=== PATIENT | female | born 1950 | race Caucasian/White ===

== ENCOUNTER 2023-02-19 10:24 | Outpatient (REF) | payer MEDICARE, BC, SELFPAY ==
[2023-02-19 15:59] LABS: Abs Immature Grans 0.01 10^3/uL (0.0-0.06); Absolute Basophil Count 0.04 10^3/uL (0.0-0.2); Absolute Eosinophil Count 0.03 10^3/uL (0.0-0.7); Absolute Lymphocyte Count 1.47 10^3/uL (1.2-3.4); Absolute Monocyte Count 0.73 10^3/uL (0.1-0.8); Absolute Neutrophil Count 2.72 10^3/uL (1.2-6.7); Basophils % 0.8; Eosinophils % 0.6; HCT 39.4 % (36.0-46.0); HGB 13.3 g/dL (11.2-15.7); Immature Grans % 0.2; Lymphocytes % 29.4; MCH 31.2 pg (27.0-33.0); MCHC 33.8 % (32.0-36.0); MCV 93 fL (80-95); MPV 10.1 fL (8.0-11.0); Monocytes % 14.6; Neutrophils % 54.4; Platelet Count 177 10^3/uL (130-400); RBC 4.26 10^6/uL (3.93-5.22); RDW 13.2 % (11.7-14.6); RDW-SD 45.3 fL
[2023-02-19 16:30] LABS: BUN 12 mg/dL (7-18); CREATININE 0.9 mg/dL (0.55-1.02); Calcium 8.8 mg/dL (8.5-10.1); Chloride 100 mmol/L (98-107); Estimated GFR 68.77 (mL/min/1.73m2); Glucose 116 mg/dL (74-106); Potassium 4.2 mmol/L (3.5-5.1); Sodium 134 mmol/L (136-145)
== END 2023-02-19 10:25 | disposition home or self-care (01) ==
LOC: LBN 10:24
PROVIDERS: Visit Provider Nurse Practitioner Family
DX: U07.1 COVID-19 (principal); M79.18 Myalgia, other site; R50.9 Fever, unspecified
CPT/HCPCS: 80048; 85025

== ENCOUNTER 2023-12-25 09:30 | Emergency (ER) | payer MEDICARE, BC, SELFPAY ==
[2023-12-25] VITALS (14 sets, daily range): BP systolic 115–172; BP diastolic 78–95; PULSE 56–66; RESP 17; TEMP 36.3; O2SAT 95–97
--- NOTE | 2023-12-25 09:59 | ED.GENADUL_ITS ---
Discharge Plan Disposition Patient Disposition: Home Condition: Stable Discharge Details Clinical Impression: Epiploic appendagitis Primary Care Provider: Unknown,Unknown ED Provider: Zackery Peña Home Meds and New Rx's Prescriptions: Continued pravastatin 20 mg tablet 20 mg PO DAILY multivitamin [Daily Multi-Vitamin] 1 EACH tablet 1 tab PO DAILY cholecalciferol (vitamin D3) 1,000 UNITS tablet 2,000 unit PO DAILY latanoprost 0.005 % drops 1 drp ophthalmic (eye) QPM Patient Comments: INSTILL 1 DROP INTO EACH EYE ONCE DAILY AT NIGHT AT BEDTIME coenzyme Q10 [CoQ-10] 100 mg capsule 200 mg PO DAILY psyllium husk [Daily Fiber] 0.52 gram capsule 0.52 g PO DAILY Xagc-Wiqe-Hzuwly Oil [phone] mg capsule 1 cap PO QHS afpsyip-whwluiigr-erquaf-zinc Tablet 1 tab PO DAILY C Complex 1,000 mg tablet extended release 1,000 mg PO DAILY octavit 1 tab PO DAILY vitamin E 200 unit capsule 45 mg PO DAILY Discharge Instructions Additional Instructions: You were seen in the emergency department for your left lower abdominal pain, you were found to have a condition called epiploic appendagitis, this is a torsion of a small piece of normal abdominal omentum which is a drape of cushioning fat nodules that protect your colon from physical trauma, this condition is usually benign and self-limiting and resolves in 3 to 14 days. There is a small chance that this can cause abscess instead of normal resorption, it is also a very minuscule chance of causing a small bowel obstruction, please return for any severe increase in pain especially with fever, complete constipation, other emergent concerns. Pain control is the only goal of this condition and that would be through Tylenol and ibuprofen as needed. Discharge Data Discharge Date/Time-TO BE ENTERED AT DEPARTURE: 12/25/23 12:55 HPI General Date/Time Provider Initiated Documentation: 12/25/23 09:42 . HPI Narrative: 73 year-old female presents to ED today by POV/ambulating with a chief complaint of L sided abdominal pain, poor appetite since last night with onset of abdominal pain a few days ago. Quality described as generalized aching, no radiation to severe sharp pain, R sided abdominal pain, nausea/vomiting, diarrhea, constipation, endorses passing, flatus, denies fevers, denies chest pain, shortness of breath, or cough. Severity is described as moderate. Palliating factors include nothing specific attempted. Provoking factors include nothing specific. Patient not anticoagulated. Related Data Home Medications ?Medication ?Instructions ?Recorded ?Confirmed cholecalciferol (vitamin D3) 25 2,000 unit PO DAILY 05/11/14 12/25/23 mcg (1,000 unit) tablet multivitamin (Daily Multi-Vitamin 1 tab PO DAILY 05/11/14 12/25/23 tablet) pravastatin 20 mg tablet 20 mg PO DAILY 02/19/23 12/25/23 ascorbic acid (vitamin C) 1,000 mg 1,000 mg PO DAILY 12/25/23 12/25/23 tablet,extended release (C Complex) xrljspp-jfhnxehgy-cmbwur-zinc 1 tab PO DAILY 12/25/23 12/25/23 tablet coenzyme Q10 100 mg capsule 200 mg PO DAILY 12/25/23 12/25/23 (CoQ-10) fish,safflwr,flax,borag 1 cap PO QHS 12/25/23 12/25/23 oils-om3,6,9 #2 800 mg-200 mg-150 mg-50 mg cap (Qifw-Vkcn-Tqgtia Oil) latanoprost 0.005 % eye drops 1 drp ophthalmic (eye) QPM 12/25/23 12/25/23 octavit 1 tab PO DAILY 12/25/23 12/25/23 psyllium husk 0.52 gram capsule 0.52 g PO DAILY 12/25/23 12/25/23 (Daily Fiber) vitamin E 200 unit capsule 45 mg PO DAILY 12/25/23 12/25/23 Allergies Allergy/AdvReac Type Severity Reaction Status Date / Time Sulfa (Sulfonamide Allergy Intermediate Skin Rash Unverified 12/25/23 09:38 Antibiotics) General Stated Complaint: Abd Prob CAITLIN: 3 Review of Systems All systems reviewed & are unremarkable except as noted in HPI and below Exam Narrative Exam Narrative: GENERAL APPEARANCE: Well-nourished, non-toxic, awake and alert, atraumatic, no acute distress. SKIN: Warm, pink, dry, intact, without rashes/lesions/ulcerations. HEAD: Normocephalic, atraumatic, normal hair distribution for gender/age. EYES: Normal conjunctiva, no exudates on lids/lashes. ENT: Nares patent, no circumoral cyanosis, no facial swelling NECK: Supple, trachea midline, painless cervical ROM. LUNGS/CHEST: Lungs CTA bilaterally- no rhonchi/rales/wheezes diffusely, non- labored respirations, normal A/P diameter, symmetrical expansion, no chest wall deformity HEART (CV/PV): Regular rate and rhythm without murmur, no peripheral edema, no JVD. ABDOMEN: Soft, non-distended, no guarding, L sided abdominal tenderness, negative Rovsing's, no CVA tenderness to percussion bilaterally. MSK: Normal ROM, no swelling/deformity to bilateral UEs or LEs, moving all extremities without weakness, no cyanosis, spine midline without tenderness, normal curvature. NEURO: Mental Status AAOx4 - alert to person, place, time, events No facial droop, no forehead involvement. Motor: No focal weakness - strength 5/5 in bilateral UEs and LEs, proximal and distal, symmetric. Sensory: sensation intact to light touch globally. Gait normal: patient ambulated without ataxia into ED room. PSYCH: euthymic, cooperative, pleasant, appropriate speech Course Vital Signs Vital signs: Vital Signs Temperature 36.3 C L 12/25/23 09:34 Pulse 66 12/25/23 09:34 Respiratory Rate 17 12/25/23 09:34 Blood Pressure 163/79 H 12/25/23 09:34 Pulse Oximetry 96 12/25/23 09:34 Temperature 36.3 C L 12/25/23 09:38 Temperature Source Temporal Artery Scan 12/25/23 09:38 Pulse 66 12/25/23 09:38 Respiratory Rate 17 12/25/23 09:38 Blood Pressure 163/79 H 12/25/23 09:38 Blood Pressure Position Sitting 12/25/23 09:38 Pulse Oximetry 96 12/25/23 09:38 Oxygen Delivery Method Room Air 12/25/23 09:38 Oxygen Flow Rate 0 12/25/23 09:38 Pain Level 7 12/25/23 09:38 Medical Decision Making This dictation utilizes okfrn-ac-igrk dictation software and may contain unedited grammatical errors. 73 year-old female presents to ED today by POV/ambulating with a chief complaint of L sided abdominal pain, poor appetite since last night with onset of abdominal pain a few days ago. Quality described as generalized aching, no radiation to severe sharp pain, R sided abdominal pain, nausea/vomiting, diarrhea, constipation, endorses passing, flatus, denies fevers, denies chest pain, shortness of breath, or cough. Severity is described as moderate. Palliating factors include nothing specific attempted. Provoking factors include nothing specific. Patients' medical history: [ ]. Family and social history: [ ]. Pertinent exam findings / vital signs include L sided abdominal pain, stable vitals, benign cardiopulmonary exam, no CVA tenderness percussion bilaterally. Differential / pathologies of concern include diverticulitis, SBO, gastroenteritis, colitis, unlikely mesenteric ischemia or sepsis. Diagnostic studies of: -CBC, CMP, CRP/ESR, lactate, lipase, procalcitonin, UA, blood cultures. -CBC is reassuring without leukocytosis or anemia -Lactate 1.2, procalcitonin negative-do not suspect sepsis or mesenteric ischemia -CRP only mildly elevated with a normal ESR do not suspect inflammatory bowel disease -CMP benign -UA has moderate leuk esterase with 10-20 WBCs will await culture -CT shows IV fluid appendagitis, discussed with surgery they provided reassurance that the patient will likely improve as this is a self-limiting condition but distress strict return criteria Interventions of: -Patient refused simple analgesics. ED Course/Assessment/Plan: 73-year-old otherwise healthy female presents with left-sided abdominal pain of a few days, poor appetite since last night, denies nausea vomiting diarrhea or fever, CT shows epiploic appendagitis and labs are reassuring for no acute infectious etiology at this time, I discussed the benign self-limiting condition and very minimal chance for progression to a possible abscess, did stressed strict return criteria for severe increase in pain especially with fever. Findings not consistent with inflammatory bowel disease, diverticulitis, perforated viscus, acute abdominal emergency. Disposition of Epiploic Appendagitis. Patient verbalized understanding of the plan and return to ED criteria and engaged in shared decision making. Medical Records Medical records reviewed: Yes I reviewed the patient's medical records. Imaging Data Radiologic Study: Attestation: I personally reviewed and interpreted this imaging study as follows: Imaging: CT Scan Radiologist's impression: Exam: CT Abdomen And Pelvis With Contrast Exam date and time: 12/25/2023 11:23 AM Age: 73 years old Clinical indication: Abdominal tenderness TECHNIQUE: Imaging protocol: Computed tomography of the abdomen and pelvis with contrast. Contrast material: OMNIPAQUE 350; Contrast volume: 100 ml; Contrast route: INTRAVENOUS (IV); COMPARISON: No relevant prior studies available. FINDINGS: Heart: There is calcification of the mitral valve annulus. Liver: Subcentimeter low attenuation area in the liver is too small for characterization. Gallbladder and biliary ducts: Multiple gallstones in the gallbladder. Pancreas: Pancreatic atrophy Spleen: Normal. No splenomegaly. Adrenal glands: Normal. No mass. Kidneys and ureters: Subcentimeter low attenuation area in the right kidney is too small for characterization. Stomach and bowel: No the bowel obstruction. No mucosal thickening Appendix: Normal appendix Intraperitoneal space: 2 cm Hyperdense ring with surrounding inflammatory changes in the anterior aspect of the left hemipelvis (series 8, image 96.). Differential includes omental infarction and epiploica appendagitis.. Vasculature: Unremarkable. No abdominal aortic aneurysm. Lymph nodes: Unremarkable. No enlarged lymph nodes. Urinary bladder: Unremarkable as visualized. Reproductive: Unremarkable as visualized. Bones/joints: No acute fracture.. Soft tissues: Unremarkable. IMPRESSION: 1. 2 cm Hyperdense ring with surrounding inflammatory changes in the anterior aspect of the left hemipelvis (series 8, image 96.). Differential includes omental infarction and epiploica appendagitis.. 2. Multiple gallstones in the gallbladder. Dictated and Authenticated by: Uriel Rolon MD. Lab Data Lab results reviewed: Yes I reviewed the patient's lab results. Labs: 12/25/23 10:34 Urine - Reflex from Ua Urine Culture - Pending 12/25/23 10:00 Blood Blood Culture - Pending 12/25/23 10:00 Blood Blood Culture - Pending Laboratory Tests Range/Units 12/25/23 12/25/23 10:20 10:34 WBC (4.4-10.8) 10^3/uL 7.52 RBC (3.93-5.22) 10^6/uL 4.61 Hgb (11.2-15.7) g/dL 14.1 Hct (36.0-46.0) % 42.5 MCV (80-95) fL 92 MCH (27.0-33.0) pg 30.6 MCHC (32.0-36.0) % 33.2 RDW (11.7-14.6) % 13.2 Plt Count (130-400) 10^3/uL 238 MPV (8.0-11.0) fL 9.5 Immature Gran % % 0.3 Neutrophils % % 47.0 Lymphocytes % % 41.0 Monocytes % % 8.1 Eosinophils % % 2.9 Basophils % % 0.7 Nucleated RBC % (0.0-0.3) % 0.0 Absolute Neutrophils (1.2-6.7) 10^3/uL 3.54 Absolute Lymphocytes (1.2-3.4) 10^3/uL 3.08 Absolute Monocytes (0.1-0.8) 10^3/uL 0.61 Absolute Eosinophils (0.0-0.7) 10^3/uL 0.22 Absolute Basophils (0.0-0.2) 10^3/uL 0.05 ESR (0-30) mm/hr 21 VBG Lactate (0.6-1.4) mmol/L 1.2 Sodium (136-145) mmol/L 138 Potassium (3.5-5.1) mmol/L 4.1 Chloride (98-107) mmol/L 103 Carbon Dioxide (21.0-32.0) mmol/L 26.1 Anion Gap (3-11) mmol/L 8.9 BUN (7-18) mg/dL 12 Creatinine (0.55-1.02) mg/dL 0.8 Est GFR (CKD-EPI 2020) (mL/min/1.73m2) 78.72 Glucose (74-106) mg/dL 107 H Calcium (8.5-10.1) mg/dL 9.3 Total Bilirubin (0.2-1.0) mg/dL 0.93 AST (15-37) U/L 22 ALT (14-59) U/L 35 Alkaline Phosphatase (46-116) U/L 67 C-Reactive Protein (<or=0.5) mg/dL 0.69 H Total Protein (6.4-8.2) g/dL 7.4 Albumin (3.4-5.0) g/dL 4.0 Lipase (16-77) U/L 33 Procalcitonin ng/mL < 0.1 Urine Color (Yellow) Yellow Urine Clarity (Clear) Sl Cloudy Urine pH (5-8) 7.0 Ur Specific [place] (1.005-1.025) 1.015 Urine Protein (Neg-Trace) mg/dL Negative Urine Ketones (Negative) mg/dL Negative Urine Blood (Negative) Negative Urine Nitrite (Negative) Negative Urine Bilirubin (Negative) Negative Urine Urobilinogen (Up to 0.2) mg/dL 0.2 Ur Leukocyte Esterase (Negative) Moderate H Urine RBC (0-2) HPF 0-2 Urine WBC (0-5) HPF 10-20 H Ur Epithelial Cells (Negative) HPF Rare Urine Crystals (Negative) HPF Negative Urine Bacteria (Negative) HPF Many Urine Casts (Negative) LPF Negative Urine Mucus (Negative) Trace Ur Culture Indicated? Yes Urine Glucose (Negative) mg/dL Negative Quality:SDOH Health Related Social Needs: No Data to Display PFSH All Active Problems (Updated 12/25/23 @ 12:24 by BRODY Bocanegra) Epiploic appendagitis (Acute) Social History Smoking/Tobacco Use Status: Never Smoking risk assessment performed?: Yes Drug use: Never
--- NOTE | 2023-12-25 10:00 | DI.CT_ITS ---
Exam(s) CT ABDOMEN PELVIS W EXAM: CT ABDOMEN PELVIS W CLINICAL HISTORY: LLQ tenderness. TECHNIQUE: Imaging Protocol: Axial computed tomography images with coronal and sagittal reformatted images were created and reviewed CONTRAST MATERIAL: Intravenous: Omnipaque 350 Contrast volume:100 ml Oral: no COMPARISON: No exams were available for comparison FINDINGS: ABDOMEN and PELVIS: Lung Bases: No acute findings. Liver: Normal density. No suspicious mass. Gallbladder and biliary tract: A few small stones are present. No wall thickening. No biliary dilat ion. Pancreas: Normal density. No abnormal calcifications or inflammatory process. No evidence of mass. Spleen: Normal. Kidneys: Normal size, contour and axis. No radiodense stones. No obstructive uropathy. No suspicious masses seen. Adrenal glands: No masses seen. Vasculature: Abdominal aorta non-dilated. Soft tissues: Unremarkable. Bladder: No gross wall thickening. No calculi.No focal mass. Bowel: No obstruction. No bowel wall thickening. Appendix normal. Peritoneal cavity: No ascites. No focal collection. Small area of inflammation seen in the fat anter ior to the mid descending colon, consistent with epiploic appendagitis. No evidence of diverticula. Appendix normal. Bones: Degenerative disc changes at L4-5. Reproductive organs: Unremarkable. Lymph nodes: No pathologically enlarged lymph nodes. But IMPRESSION:: Findings consistent with epiploic appendagitis in the left anterior left lower quadran t mesentery RADIATION DOSE DELIVERED: Total DLP DATA REPOSITORY: All CT scans at this facility are submitted to the National Radiology Data Registry (NRDR) Dose Index Registry (DIR) with the [employer] ([employer]). RADIATION OPTIMIZATION: All CT scans at this facility use at least one of these dose optimization te chniques: automated exposure control; mA and/or kV adjustment per patient size (includes targeted exa ms where dose is matched to clinical indication); or iterative reconstruction.
[2023-12-25 10:24] LABS: Lactate 1.2 mmol/L (0.6-1.4)
[2023-12-25 10:32] LABS: Abs Immature Grans 0.02 10^3/uL (0.0-0.06); Absolute Basophil Count 0.05 10^3/uL (0.0-0.2); Absolute Eosinophil Count 0.22 10^3/uL (0.0-0.7); Absolute Lymphocyte Count 3.08 10^3/uL (1.2-3.4); Absolute Monocyte Count 0.61 10^3/uL (0.1-0.8); Absolute Neutrophil Count 3.54 10^3/uL (1.2-6.7); Basophils % 0.7 %; Eosinophils % 2.9 %; HCT 42.5 % (36.0-46.0); HGB 14.1 g/dL (11.2-15.7); Immature Grans % 0.3 %; MCH 30.6 pg (27.0-33.0); MCHC 33.2 % (32.0-36.0); MCV 92 fL (80-95); MPV 9.5 fL (8.0-11.0); Monocytes % 8.1 %; Platelet Count 238 10^3/uL (130-400); RBC 4.61 10^6/uL (3.93-5.22); RDW 13.2 % (11.7-14.6); RDW-SD 44.9 fL; WBC 7.52 10^3/uL (4.4-10.8)
[2023-12-25] MEDS: Normal Saline 1,000 ML 1000 ML IV (10:38)
[2023-12-25 10:54] LABS: ESR 21 mm/hr (0-30)
[2023-12-25 10:59] LABS: ALT 35 U/L (14-59); AST 22 U/L (15-37); Alkaline Phosphatase 67 U/L (46-116); Anion Gap 8.9 mmol/L (3-11); BUN 12 mg/dL (7-18); Bilirubin, Total 0.93 mg/dL (0.2-1.0); C-Reactive Protein 0.69 mg/dL (<or=0.5); CO2 26.1 mmol/L (21.0-32.0); CREATININE 0.8 mg/dL (0.55-1.02); Calcium 9.3 mg/dL (8.5-10.1); Chloride 103 mmol/L (98-107); Estimated GFR 78.72 (mL/min/1.73m2); Glucose 107 mg/dL (74-106); Lipase 33 U/L (16-77); Potassium 4.1 mmol/L (3.5-5.1); Sodium 138 mmol/L (136-145); Total Protein 7.4 g/dL (6.4-8.2)
[2023-12-25] MEDS: Omnipaque 350 MG/ML 100 ML BTL IJ (11:19)
[2023-12-25] MEDS: Normal Saline - Diluent 50 ML VIAL IV (11:21)
[2023-12-25 11:42] LABS: Procalcitonin < 0.1 ng/mL
[2023-12-25 11:52] LABS: Bilirubin Negative (Negative); Blood Negative (Negative); Clarity Sl Cloudy (Clear); Glucose Negative (Negative); Ketones Negative (Negative); Leukocyte Esterase Moderate (Negative); Nitrite Negative (Negative); Specific Gravity 1.015 (1.005-1.025); Urobilinogen 0.2 mg/dL (Up to 0.2)
--- NOTE | 2023-12-25 11:54 | DI.VRAD_ITS ---
PROCEDURE INFORMATION: Exam: CT Abdomen And Pelvis With Contrast Exam date and time: 12/25/2023 11:23 AM Age: 73 years old Clinical indication: Abdominal tenderness TECHNIQUE: Imaging protocol: Computed tomography of the abdomen and pelvis with contrast. Contrast material: OMNIPAQUE 350; Contrast volume: 100 ml; Contrast route: INTRAVENOUS (IV); COMPARISON: No relevant prior studies available. FINDINGS: Heart: There is calcification of the mitral valve annulus. Liver: Subcentimeter low attenuation area in the liver is too small for characterization. Gallbladder and biliary ducts: Multiple gallstones in the gallbladder. Pancreas: Pancreatic atrophy Spleen: Normal. No splenomegaly. Adrenal glands: Normal. No mass. Kidneys and ureters: Subcentimeter low attenuation area in the right kidney is too small for characterization. Stomach and bowel: No the bowel obstruction. No mucosal thickening Appendix: Normal appendix Intraperitoneal space: 2 cm Hyperdense ring with surrounding inflammatory changes in the anterior aspect of the left hemipelvis (series 8, image 96.). Differential includes omental infarction and epiploica appendagitis.. Vasculature: Unremarkable. No abdominal aortic aneurysm. Lymph nodes: Unremarkable. No enlarged lymph nodes. Urinary bladder: Unremarkable as visualized. Reproductive: Unremarkable as visualized. Bones/joints: No acute fracture.. Soft tissues: Unremarkable. IMPRESSION: 1. 2 cm Hyperdense ring with surrounding inflammatory changes in the anterior aspect of the left hemipelvis (series 8, image 96.). Differential includes omental infarction and epiploica appendagitis.. 2. Multiple gallstones in the gallbladder. Dictated and Authenticated by: Uriel Rolon MD. Ordering:SVETLANA Vizcarra MD
[2023-12-25 11:59] LABS: Bacteria Many HPF (Negative); C & S Indicated? Yes; Casts Negative LPF (Negative); Crystals Negative HPF (Negative); Epithelial Cells Rare HPF (Negative); Mucus Trace (Negative); RBC 0-2 HPF (0-2)
== END 2023-12-25 12:55 | disposition home or self-care (01) ==
PROVIDERS: Emergency Provider Physician Assistant
DX: K63.89 Other specified diseases of intestine (principal)
CPT/HCPCS: 36415; 80053; 83690; 84145; 85652; 87040; 87077; 99285; 74177; 81003; 81015; 83605; 85025; 86140; 87086; 87186; 99284; J3490